=== PATIENT | female | born 1950 | race Caucasian/White ===

== ENCOUNTER 2016-06-10 09:05 | Inpatient (IN) | payer MEDICARE ==
[~2016-06-10] VITALS: Ht 162.6 cm; Wt 63.0 kg
[2016-06-10] VITALS (13 sets, daily range): BP systolic 83–138; BP diastolic 56–90; PULSE 56–146; RESP 16–22; TEMP 98.3–98.6; O2SAT 95–98
[~2016-06-10 09:05] MED LIST: AMLO5TAB96 PO; ASPI325T PO; CALCCHW25 PO; LORA10TA7 PO; OCUV PO; SIMV40 PO; VITATAB25 PO
--- NOTE | 2016-06-10 09:25 | PD ---
HPI Chief Complaint: Cardiac Complaint Time Seen by Provider: 09:15 Travel History International Travel<30 days: No Contact w/Intl Traveler<30days: No Traveled to known affect area: No History of Present Illness HPI Patient is a 58-year-old female who comes in due to rapid heart rate. She says she got up this morning and she felt like her heart was pounding. She says when she stood up she felt very dizzy which caused her to fall and hit her head. She says she did not pass out, she just felt very dizzy at the time. She says she had a frontal headache, but now feels like numbness to the front of her head. She says she has a history of a "funny" heartbeat, but has never had to be on medication for it. She says she's never felt like this before. She denies any chest pain. She denies any shortness of breath. She says she was feeling in her normal state of health before going to bed last night. She denies fever, chills, cough, cold. PFSH Past Medical History Arthritis: Yes (OSTEO) Asthma: Yes Cancer: Yes (RECTAL - REC CHEMO) Cardiovascular Problems: Yes Chemotherapy: Yes Hypertension: Yes Immunizations Current: Yes Tetanus Vaccination: < 5 Years Influenza Vaccination: Yes ?: Not Menopausal: Yes Dilation and Curettage (D&C): Yes Past Surgical History Tonsillectomy: Yes Other Surgery: Yes (SKIN SURGICAL REPAIR OF SCARRING FROM [facility]) Social History Alcohol Use: Yes (SELDOM) Tobacco Use: No Substance Use: No Allergies-Medications (Allergen,Severity, Reaction): Coded Allergies: Codeine (Verified Allergy, Mild, [facility], 01/16/16) Sulfa (Verified Allergy, Mild, Rash, 01/16/16) Reported Meds & Prescriptions Reported Meds & Active Scripts Active Reported Multivitamin Adults (Multiple Vitamins W/ Minerals) 1 Tab 1 Tab PO DAILY Calcium + D & K (Calcium-Vitamins D & K) 500-1,000-40 Mg-Unit-Mcg Chew 1 Tab CHEW Amlodipine (Amlodipine Besylate) 10 Mg Tab 10 Mg PO DAILY Simvastatin 40 Mg Tab 40 Mg PO HS Review of Systems Except as stated in HPI: all other systems reviewed are Neg General / Constitutional: No: Fever, Chills Eyes: No: Blurred Vision HENT: Positive: Headaches, Lightheadedness Cardiovascular: Positive: Palpitations, No: Chest Pain or Discomfort Respiratory: No: Shortness of Breath Gastrointestinal: No: Nausea, Vomiting Musculoskeletal: No: Edema, Pain Skin: No Rash, No Change in Pigmentation Neurologic: Positive: Dizziness Physical Exam Narrative GENERAL: Awake and alert in no acute distress. SKIN: Warm and dry. Ecchymosis under the right eye. HEAD: Atraumatic. Normocephalic. EYES: Pupils equal and round. No scleral icterus. Extraocular movements intact. Tender to palpation around the right eye. ENT: Mucous membranes pink and moist. NECK: Trachea midline. No JVD. CARDIOVASCULAR: Regular rate and rhythm. No murmur appreciated. RESPIRATORY: No accessory muscle use. Clear to auscultation. Breath sounds equal bilaterally. GASTROINTESTINAL: Abdomen soft, non-tender, nondistended. MUSCULOSKELETAL: No obvious deformities. No clubbing. No cyanosis. No edema. NEUROLOGICAL: Awake and alert. No obvious cranial nerve deficits. Motor grossly within normal limits. Normal speech. Sensation grossly intact. PSYCHIATRIC: Appropriate mood and affect; insight and judgment normal. Data Data Last Documented VS Vital Signs Date Time Temp Pulse Resp B/P Pulse Ox O2 Delivery O2 Flow Rate FiO2 06/10/16 11:30 65 18 115/59 97 Nasal Cannula 2 06/10/16 09:13 98.6 Orders Ckmb (Isoenzyme) Profile (06/10/16 09:16) Complete Blood Count With Diff (06/10/16 09:16) Comprehensive Metabolic Panel (06/10/16 09:16) Magnesium (Mg) (06/10/16 09:16) Prothrombin Time / Inr (Pt) (06/10/16 09:16) Act Partial Throm Time (Ptt) (06/10/16 09:16) Troponin I (06/10/16 09:16) Chest, Single Ap (06/10/16 09:16) Ecg Monitoring (06/10/16 09:16) Bilateral Bp Monitoring (06/10/16 09:16) Iv Access Insert/Monitor (06/10/16 09:16) Oximetry (06/10/16 09:16) Oxygen Administration (06/10/16 09:16) Aspirin Chew (Aspirin Chew) (06/10/16 09:30) Sodium Chloride 0.9% Flush (Ns Flush) (06/10/16 09:30) Thyroid Stimulating Hormone (06/10/16 09:16) Diltiazem Inj (Cardizem Inj) (06/10/16 09:30) Diltiazem Inj (Cardizem Inj) (06/10/16 09:30) Sodium Chlorid 0.9% 500 Ml Inj (Ns 500 M (06/10/16 09:30) Ct Brain W/O Iv Contrast(Rout) (06/10/16 ) Ct Facial Bones W/O Iv Cont (06/10/16 ) Ct Cerv Spine W/O Contrast (06/10/16 ) Electrocardiogram (06/10/16 09:15) Ketorolac Inj (Toradol Inj) (06/10/16 11:15) Pelvis, Ap Only (Routine) (06/10/16 ) Spine, Lumbar Comp W/Obliq (06/10/16 ) Admit Order (Ed Use Only) (06/10/16 ) Labs Laboratory Tests Test 06/10/16 09:36 White Blood Count 7.0 TH/MM3 Red Blood Count 4.99 MIL/MM3 Hemoglobin 14.6 GM/DL Hematocrit 43.2 % Mean Corpuscular Volume 86.5 FL Mean Corpuscular Hemoglobin 29.2 PG Mean Corpuscular Hemoglobin 33.8 % Concent Red Cell Distribution Width 15.0 % Platelet Count 209 TH/MM3 Mean Platelet Volume 8.7 FL Neutrophils (%) (Auto) 70.2 % Lymphocytes (%) (Auto) 18.2 % Monocytes (%) (Auto) 6.9 % Eosinophils (%) (Auto) 3.5 % Basophils (%) (Auto) 1.2 % Neutrophils # (Auto) 4.9 TH/MM3 Lymphocytes # (Auto) 1.3 TH/MM3 Monocytes # (Auto) 0.5 TH/MM3 Eosinophils # (Auto) 0.2 TH/MM3 Basophils # (Auto) 0.1 TH/MM3 CBC Comment DIFF FINAL Differential Comment Prothrombin Time 10.5 SEC Prothromb Time International 1.0 RATIO Ratio Activated Partial 25.7 SEC Thromboplast Time Sodium Level 143 MEQ/L Potassium Level 4.0 MEQ/L Chloride Level 108 MEQ/L Carbon Dioxide Level 31.7 MEQ/L Anion Gap 3 MEQ/L Blood Urea Nitrogen 19 MG/DL Creatinine 0.80 MG/DL Estimat Glomerular Filtration 71 ML/MIN Rate Random Glucose 152 MG/DL Calcium Level 8.3 MG/DL Magnesium Level 2.3 MG/DL Total Bilirubin 0.3 MG/DL Aspartate Amino Transf 21 U/L (AST/SGOT) Alanine Aminotransferase 30 U/L (ALT/SGPT) Alkaline Phosphatase 59 U/L Total Creatine Kinase 48 U/L Troponin I LESS THAN 0.02 NG/ML Total Protein 6.8 GM/DL Albumin 3.7 GM/DL Thyroid Stimulating Hormone 4.440 uIU/ML 3rd Gen [facility] Medical Decision Making Medical Screen Exam Complete: Yes Emergency Medical Condition: Yes Medical Record Reviewed: Yes Interpretation(s) ECG shows A. fib with RVR at 138. Differential Diagnosis Arrhythmia versus electrolyte abnormality versus dehydration versus infection versus ACS Narrative Course Patient is a 58-year-old female comes in due to rapid heart rate. This started this morning this causes her to feel so dizzy that she actually fell down and hit her head. Exam shows a rapid irregular heart rate. IV established, patient connected to the hospital monitor. ECG shows A. fib with RVR. Patient originally given 20 mg of Cardizem by EMS with some response, her heart rate improved from the 190s to the 130s to 160s. Patient given second bolus of Cardizem in the emergency department. Cardizem drip ordered, however patient responded well to the bolus of Cardizem and maintained her heart rate under [address] head, C-spine, facial bones ordered, shows no acute findings. Chest x-ray shows no acute findings. Patient placed in observation for further management. Diagnosis Primary Impression: Atrial fibrillation with RVR Additional Impression: Near syncope Admitting Information Admitting Physician Requests: Observation Condition: Stable Katheryn Paul MD Jun 10, 2016 09:24
[2016-06-10] MEDS ORDERED: SODIUM CHLORID 0.9% 500 ML INJ 500 ML IV ONE (09:30)
[2016-06-10] MEDS ORDERED: ASPIRIN 81 MG CHEW TAB PO ONE (09:30)
[2016-06-10] MEDS ORDERED: DILTIAZEM HCL 25 MG/5 ML VIAL IV ONE (09:30)
[2016-06-10] MEDS ORDERED: DILTIAZEM INJ 125 MG in SODIUM CHLORIDE 0.9% INJ 100 ML IV SCH (09:30)
[2016-06-10] MEDS ORDERED: SODIUM CHLORIDE 0.9% FLUSH 5 ML FLUSH IVF PRN (09:30)
--- NOTE | 2016-06-10 09:41 | RADRPT ---
EXAM DATE/TIME: 06/10/2016 09:29 [facility] COMPARISON: No previous studies available for comparison. INDICATIONS : Fell today, nausea, weakness and rapid heart beat, no chest pain, no shortness of breath MEDICAL HISTORY : None. SURGICAL HISTORY : None. ENCOUNTER: Initial ACUITY: 1 day PAIN SCORE: 0/10 LOCATION: Bilateral chest FINDINGS: Single AP view of the chest. The lungs are clear. Cardiomediastinal silhouette within normal limits. No evidence of pleural effusion or pneumothorax. CONCLUSION: No acute cardiopulmonary disease identified. Vineet Levine MD on June 10, 2016 at 9:39 Board Certified Radiologist. This report was verified electronically.
[2016-06-10 09:49] LABS: AUTOMATED NEUTROPHIL # 4.9 TH/MM3 (1.8-7.7); BASOPHIL # 0.1 TH/MM3 (0-0.2); BASOPHIL % 1.2 % (0.0-2.0); EOSINOPHIL # 0.2 TH/MM3 (0-0.4); EOSINOPHIL % 3.5 % (0.0-4.0); HEMATOCRIT 43.2 % (35.0-46.0); HEMO FLAGS DIFF FINAL; LYMPH % 18.2 % (9.0-44.0); LYMPHOCYTE # 1.3 TH/MM3 (1.0-4.8); MEAN CELL VOLUME 86.5 FL (80.0-100.0); MEAN CORPUSCULAR HEMOGLOBIN 29.2 PG (27.0-34.0); MEAN CORPUSCULAR HGB CONC 33.8 % (32.0-36.0); MONO % 6.9 % (0.0-8.0); NEUT % 70.2 % (16.0-70.0); PLATELET COUNT 209 TH/MM3 (150-450); RED BLOOD COUNT 4.99 MIL/MM3 (4.00-5.30)
--- NOTE | 2016-06-10 09:52 | RADRPT ---
EXAM DATE/TIME: 06/10/2016 09:34 [facility] COMPARISON: No previous studies available for comparison. INDICATIONS : Trauma; syncope, fell and hit head against wall. RADIATION DOSE: 56.35 CTDIvol (mGy) MEDICAL HISTORY : Cardiovascular disease. Hypertension. Carcinoma, rectal. SURGICAL HISTORY : Tonsillectomy. ENCOUNTER: Initial ACUITY: 1 day PAIN SCALE: 2/10 LOCATION: cranial TECHNIQUE: Multiple contiguous axial images were obtained of the head. Using automated exposure control and adj ustment of the mA and/or kV according to patient size, radiation dose was kept as low as reasonably a chievable to obtain optimal diagnostic quality images. FINDINGS: CEREBRUM: The ventricles are normal for age. No evidence of midline shift, mass lesion, hemorrhage or acute in farction. No extra-axial fluid collections are seen. POSTERIOR FOSSA: The cerebellum and brainstem are intact. The 4th ventricle is midline. The cerebellopontine angle i s unremarkable. EXTRACRANIAL: The visualized portion of the orbits is intact. SKULL: The calvaria is intact. No evidence of skull fracture. CONCLUSION: No acute intracranial findings. Vineet Levine MD on June 10, 2016 at 9:48 Board Certified Radiologist. This report was verified electronically.
[2016-06-10 09:58] LABS: APTT (PATIENT) 25.7 SEC (24.3-30.1); PROTHROMBIN TIME - PATIENT 10.5 SEC (9.8-11.6)
[2016-06-10] MEDS ORDERED: MULT1TAB84 PO (10:10)
[2016-06-10] MEDS ORDERED: CALCCHW25 CHEW (10:10)
[2016-06-10] MEDS ORDERED: AMLO10TA2 PO (10:10)
[2016-06-10] MEDS ORDERED: SIMV40TA PO (10:10)
[2016-06-10 10:12] LABS: ALT (GPT) 30 U/L (10-53); ANION GAP 3 MEQ/L (5-15); AST (GOT) 21 U/L (15-37); BICARBONATE 31.7 MEQ/L (21.0-32.0); BLOOD UREA NITROGEN 19 MG/DL (7-18); CHLORIDE 108 MEQ/L (98-107); GLOMERULAR FILTRATION RATE 71 ML/MIN (>89); MAGNESIUM 2.3 MG/DL (1.5-2.5); SODIUM (NA) 143 MEQ/L (136-145)
[2016-06-10 10:21] LABS: ALKALINE PHOSPHATASE 59 U/L (45-117); TOTAL BILIRUBIN ADULT 0.3 MG/DL (0.2-1.0)
[2016-06-10 10:24] LABS: CREATINE KINASE 48 U/L (26-192)
--- NOTE | 2016-06-10 10:41 | RADRPT ---
EXAM DATE/TIME: 06/10/2016 09:34 [facility] COMPARISON: No previous studies available for comparison. INDICATIONS : Trauma; syncope, fell and hit head against wall. RADIATION DOSE: 21.96 CTDIvol (mGy) MEDICAL HISTORY : Cardiovascular disease. Carcinoma, rectal. Hypertension. SURGICAL HISTORY : Tonsillectomy. ENCOUNTER: Initial ACUITY: 1 day PAIN SCORE: 3/10 LOCATION: facial TECHNIQUE: Volumetric scanning of the facial bones was performed. Using automated exposure control and adjustme nt of the mA and/or kV according to patient size, radiation dose was kept as low as reasonably achiev able to obtain optimal diagnostic quality images. FINDINGS: ORBITS: The orbital and infraorbital osseous structures are intact. The retroconal structures have a normal configuration. No radiopaque foreign bodies are seen. NASAL BONE: The nasal bone and maxillary spine are intact ZYGOMATIC ARCHES: Symmetric without evidence of fracture. SINUSES: Minimal mucosal thickening of the posterior wall of the right maxillary sinus. NASAL CAVITY: The nasal septum is intact and midline. The lacrimal ducts are intact. SOFT TISSUES: No radiopaque foreign bodies seen. No soft-tissue swelling is seen. INTRACRANIAL: No intracranial air seen. CRIBIFORM PLATE: Grossly intact. CONCLUSION: No evidence of fracture. Vineet Levine MD on June 10, 2016 at 10:36 Board Certified Radiologist. This report was verified electronically.
--- NOTE | 2016-06-10 10:47 | RADRPT ---
EXAM DATE/TIME: 06/10/2016 09:34 [facility] COMPARISON: No previous studies available for comparison. INDICATIONS : Trauma; syncope, fell and hit head against wall. RADIATION DOSE: 18.26 CTDIvol (mGy) MEDICAL HISTORY : Cardiovascular disease. Carcinoma, rectal. Hypertension. SURGICAL HISTORY : Tonsillectomy. ENCOUNTER: Initial ACUITY: 1 day PAIN SCALE: 2/10 LOCATION: neck TECHNIQUE: Volumetric scanning of the cervical spine was performed. Multiplanar reconstructions in the sagittal, coronal and oblique axial planes were performed. Using automated exposure control and adjustment o f the mA and/or kV according to patient size, radiation dose was kept as low as reasonably achievable to obtain optimal diagnostic quality images. FINDINGS: VERTEBRAE: Cervical kyphosis centered at C4-5. ALIGNMENT: 2-3 mm anterolisthesis C4 on C5. Alignment otherwise within normal limits. No evidence of fracture. C2-C3: The moderate severity right-sided facet arthrosis. No evidence of focal disc protrusion. Central kristen l normal diameter. Neural foraminal diameters within normal limits. C3-C4: Moderate severity left-sided facet arthrosis. No evidence of focal disc protrusion. Central canal nor mal diameter. Neural foraminal diameters within normal limits. C4-C5: Moderate severity bilateral facet arthrosis. No evidence of focal disc protrusion. Central canal norm al diameter. Neural foraminal diameters within normal limits. C5-C6: Broad-based disc osteophyte complex and mild bilateral facet arthrosis. Mild right neural foraminal n arrowing. Central canal diameter within normal limits. C6-C7: Broad-based disc osteophyte complex and moderate severity right-sided facet arthrosis. Moderate right neural foraminal narrowing. Central canal diameter within normal limits. C7-T1: No evidence of focal disc protrusion. Central canal normal diameter. Neural foraminal diameters withi n normal limits. CONCLUSION: 1. No evidence of fracture. 2. Multilevel degenerative findings. Vineet Levine MD on June 10, 2016 at 10:39 Board Certified Radiologist. This report was verified electronically.
[2016-06-10] MEDS ORDERED: KETOROLAC TROMETHAMINE 30 MG/ML (IVP) VIAL IV PUSH ONE (11:15)
--- NOTE | 2016-06-10 11:39 | HHI.HP ---
[facility] Service Family Medicine Primary Care Physician Bryson Cooper MD Admission Diagnosis syncope, afib Diagnoses: Chief Complaint: palpitations International Travel<30 Days: No Contact w/Intl Traveler<30days: No Known Affected Area: No History of Present Illness 66 y/o female presents this morning with palpitations. States she woke up this morning with a "hard" heartbeat. Also felt some tingling in her face and had a headache. She felt lightheaded/dizzy. She went to the bathroom and after standing up, she felt lightheaded. She fell and hit side of face on the wall and developed a nosebleed. Didn't lose consciousness, but felt nauseated. No vomiting. Denies chest pain, SOB. No history of heart disease. Does not drink alcohol, glass of wine rarely. Has a history of hypertension States she states her heart flutters every once and awhile. Saw boiler room operator, Dr. Samson and did full cardiac workup, which was negative. Also put her on holter, which was negative Father had "weak heart". Mother has history of heart disease. No fever/chills, lightheadedness/dizziness, chest pain, SOB, leg pain, weakness/numbness. (Espinoza Meier MD R1) Review of Systems Constitutional: DENIES: Fatigue, Fever, Weight loss, Chills, Dizziness Eyes: DENIES: Blurred vision, Vision loss Ears, nose, mouth, throat: DENIES: Tinnitus, Hearing loss, Nasal discharge, Running Nose Respiratory: DENIES: Cough, Wheezing, Shortness of breath Cardiovascular: COMPLAINS OF: Palpitations, DENIES: Chest pain, Lower Extremity Edema Gastrointestinal: DENIES: Abdominal pain, Bloody stools, Constipation, Diarrhea , Nausea, Vomiting Musculoskeletal: DENIES: Joint pain, Muscle aches Integumentary: DENIES: Abnormal pigmentation, Rash Hematologic/lymphatic: DENIES: Bruising, Lymphadenopathy Immunologic/allergic: DENIES: Eczema, Urticaria Neurologic: DENIES: Abnormal gait, Headache, Paresthesias Psychiatric: DENIES: Anxiety, Confusion (Espinoza Meier MD R1) Past Family Social History Past Medical History HLD HTN Rectal cancer Past Surgical History Tonsillectomy Cataract surgery Reported Medications Reported Meds & Active Scripts Active Reported Multivitamin Adults (Multiple Vitamins W/ Minerals) 1 Tab 1 Tab PO DAILY Calcium + D & K (Calcium-Vitamins D & K) 500-1,000-40 Mg-Unit-Mcg Chew 1 Tab CHEW Amlodipine (Amlodipine Besylate) 10 Mg Tab 10 Mg PO DAILY Simvastatin 40 Mg Tab 40 Mg PO HS ASA 81mg daily (Espinoza Meier MD R1) Allergies: Coded Allergies: Codeine (Verified Allergy, Mild, [facility], 01/16/16) Sulfa (Verified Allergy, Mild, Rash, 01/16/16) Active Ordered Medications Active Medications Aspirin (Aspirin Chew) 324 mg ONCE ONCE PO Last administered on 06/10/16 09:26 ; Admin Dose 324 MG; Start 06/10/16 at 09:30; Stop 06/10/16 at 09:31; Status DC Diltiazem HCl 25 mg 25 mg ONCE ONCE IV Last administered on 06/10/16 09:27; Admin Dose 25 MG; Start 06/10/16 at 09:30; Stop 06/10/16 at 09:31; Status DC Diltiazem HCl/ Sodium Chloride (Cardizem Inj/NS Inj) 125 ml @ 0 mls/hr TITRATE IV; Start 06/10/16 at 09:30 IV Flush 2 ml 2 ml UNSCH PRN IVF; Start 06/10/16 at 09:30 Ketorolac Tromethamine (Toradol Inj) 30 mg ONCE ONCE IV PUSH Last administered on 06/10/16 11:29; Admin Dose 30 MG; Start 06/10/16 at 11:15; Stop 06/10/16 at 11: 16; Status DC Sodium Chloride (NS 500 ml Inj) 500 ml @ 500 mls/hr BOLUS ONCE IV Last administered on 06/10/16 09:31; Admin Dose 500 MLS/HR; Start 06/10/16 at 09:30; Stop 06/10/16 at 10:29; Status DC Family History Both parents with heart disease No FH of Afib Social History Works as an educator automotive parts manager Denies alcohol use, wine rarely No tobacco use No illicit drug use (Espinoza Meier MD R1) Physical Exam Vital Signs Vital Signs Date Time Temp Pulse Resp B/P Pulse Ox O2 Delivery O2 Flow Rate FiO2 06/10/16 11:30 65 18 115/59 97 Nasal Cannula 2 06/10/16 09:53 82 18 102/61 97 Nasal Cannula 2 06/10/16 09:32 117 18 104/68 97 Nasal Cannula 2 83/56 06/10/16 09:24 98 Room Air 06/10/16 09:24 98 Room Air 06/10/16 09:19 146 22 96 Room Air 06/10/16 09:19 146 22 127/90 98 Room Air 06/10/16 09:13 98.6 146 22 127/90 96 Physical Exam GENERAL: Well developed, well-nourished elderly female. Negative Lavines sign. Not diaphoretic. Not anxious appearing. EYES: PERRLA. EOMI. Lids and conjunctivae reveal no gross abnormality. No scleral icterus. Ecchymoses around right eye. ENT: Hearing adequate. Head NCAT. MMM. OP/OC clear. No cervical or supraclavicular LAD. NECK: No JVD. No carotid bruits. Neck supple, no masses. Trachea midline. No thyromegaly. RESPIRATORY: No evidence of pulmonary edema. Lungs essentially CTAB, no wheezing , crackles, or increased WOB. CARDIOVASCULAR: Regular rate and rhythm. Heart rate is 65. Radial and DP pulses 2+ and symmetric bilaterally. Brisk capillary refill. ABDOMEN: S/NT/ND. Bowel sounds x 4. No masses or pulsations present. EXTREMITIES: No remarkable dependent edema or varicosities. No clubbing, cyanosis, or erythema. MUSCULOSKELETAL: MAEW without significant joint pain or deformity. Strength 5/5 in upper and lower extremities. No calf tenderness. Bony tenderness lower back. SKIN: Essentially clear with no significant rash or lesions. Adequate skin turgor. NEUROLOGICAL: NFND. Cranial nerves 2-12 grossly intact. PSYCHIATRIC: Mental status normal for age. Laboratory Laboratory Tests Test 06/10/16 09:36 White Blood Count 7.0 Red Blood Count 4.99 Hemoglobin 14.6 Hematocrit 43.2 Mean Corpuscular Volume 86.5 Mean Corpuscular Hemoglobin 29.2 Mean Corpuscular Hemoglobin 33.8 Concent Red Cell Distribution Width 15.0 Platelet Count 209 Mean Platelet Volume 8.7 Neutrophils (%) (Auto) 70.2 Lymphocytes (%) (Auto) 18.2 Monocytes (%) (Auto) 6.9 Eosinophils (%) (Auto) 3.5 Basophils (%) (Auto) 1.2 Neutrophils # (Auto) 4.9 Lymphocytes # (Auto) 1.3 Monocytes # (Auto) 0.5 Eosinophils # (Auto) 0.2 Basophils # (Auto) 0.1 CBC Comment DIFF FINAL Differential Comment Prothrombin Time 10.5 Prothromb Time International 1.0 Ratio Activated Partial 25.7 Thromboplast Time Sodium Level 143 Potassium Level 4.0 Chloride Level 108 Carbon Dioxide Level 31.7 Anion Gap 3 Blood Urea Nitrogen 19 Creatinine 0.80 Estimat Glomerular Filtration 71 Rate Random Glucose 152 Calcium Level 8.3 Magnesium Level 2.3 Total Bilirubin 0.3 Aspartate Amino Transf 21 (AST/SGOT) Alanine Aminotransferase 30 (ALT/SGPT) Alkaline Phosphatase 59 Total Creatine Kinase 48 Troponin I LESS THAN 0.02 Total Protein 6.8 Albumin 3.7 Thyroid Stimulating Hormone 4.440 3rd Gen (Espinoza Meier MD R1) Result Diagram: 06/10/1636 06/10/16 0936 Imaging Last Impressions Chest X-Ray 06/10/16 0916 Signed Impressions: Service Date/Time: Friday, June 10, 2016 09:29 - CONCLUSION: No acute cardiopulmonary disease identified. Vineet Levine MD Pelvis X-Ray 06/10/16 0000 Signed Impressions: Service Date/Time: Friday, June 10, 2016 12:08 - CONCLUSION: No evidence of fracture. Vineet Levine MD Maxillofacial CT 06/10/16 0000 Signed Impressions: Service Date/Time: Friday, June 10, 2016 09:34 - CONCLUSION: No evidence of fracture. Vineet Levine MD Lumbar Spine X-Ray 06/10/16 0000 Signed Impressions: Service Date/Time: Friday, June 10, 2016 12:09 - CONCLUSION: Fracture of the L1 vertebral body involving the anterior inferior portion of the vertebral body. Possible involvement of the pedicles seen on the lateral view. Vineet Levine MD Head CT 06/10/16 0000 Signed Impressions: Service Date/Time: Friday, June 10, 2016 09:34 - CONCLUSION: No acute intracranial findings. Vineet Levine MD Cervical Spine CT 06/10/16 0000 Signed Impressions: Service Date/Time: Friday, June 10, 2016 09:34 - CONCLUSION: 1. No evidence of fracture. 2. Multilevel degenerative findings. Vineet Levine MD (Espinoza Meier MD R1) Assessment and Plan Assessment and Plan 66 y/o female with history of HTN, HLD found to be in atrial fibrillation. Will admit for cardiac workup and medical management. Code Status Full Discussed Condition With Dr. Shore (Espinoza Meier MD R1) Attending Attestation THIS CASE WAS DISCUSSED WITH THE RESIDENT PHYSICIANS. I HAVE REVIEWED THE RECORD AND AGREE WITH THE ABOVE NOTE AND PLAN OF CARE WAS DISCUSSED. I HAVE AUTHORIZED THE ORDER FOR ADMISSION TO AN IN-PATIENT STATUS. (Vince Haile MD) Problem List: (1) Atrial fibrillation Status: Acute Plan: Admitted with rate of 146. History of palpitations, never formally diagnosed No history of heart disease Received 25mg Diltiazem IV in ED, spontaneously converted EKG shows atrial fibrillation Initial troponin negative. TSH 4.440. INR 1.0 CHADS2-Vasc score of 3 Plan -Admit to inpatient -Respiratory pulse ox -Telemetry -Trend troponins/EKGs -2-D Echo -Consult cardiology, pt known to Dr. Samson -Start metoprolol 25mg BID -BMP in AM -Start on Warfarin 5mg daily -Trend INR until therapeutic (2-3) (2) Fall Status: Acute Plan: Was lightheaded/dizzy fell and hit head on side of wall. No headache, lightheadedness on admission. No neurological deficits. Head CT negative Skeletal series xray negative, except lumbar spine: fracture of L1 vertebral body involving anterior inferior portion, possible involvement of pedicles Takes Calcium & Vitamin D supplementation at home Plan -Tylenol for fever or pain 1-5 -Toradol for pain 6-10 -Recommend DEXA as outpatient (3) HLD (hyperlipidemia) Status: Acute Plan: Continue home statin-simvastatin 40mg daily (4) HTN (hypertension) Status: Acute Plan: BP 127/90 on admission -Continue home meds: amlodipine 10mg daily (5) FEN Status: Acute Plan: Fluids: none, tolerating PO Electrolytes: wnl, continue to monitor Nutrition: heart healthy diet DVT ppx: lovenox 40mg SQ q12H (Espinoza Meier MD R1) Physician Certification 2 Midnight Certification Type: Admission for Inpatient Services Order for Inpatient Services The services are ordered in accordance with Medicare regulations or non- Medicare payer requirements, as applicable. In the case of services not specified as inpatient-only, they are appropriately provided as inpatient services in accordance with the 2-midnight benchmark. Estimated LOS (days): 2 days is the estimated time the patient will need to remain in the hospital, assuming treatment plan goals are met and no additional complications. Post-Hospital Plan: Home (Espinoza Meier MD R1) Problem Qualifiers (1) Atrial fibrillation: Qualified Code: I48.0 - Paroxysmal atrial fibrillation (2) Fall: Qualified Code: W19.XXXA - Fall, initial encounter (3) HLD (hyperlipidemia): Qualified Code: E78.00 - Pure hypercholesterolemia (4) HTN (hypertension): Qualified Code: I10 - Essential hypertension Espinoza Meier MD R1 Jun 10, 2016 11:39 Vince Haile MD Jun 11, 2016 12:40
[2016-06-10] MEDS ORDERED: SODIUM CHLORIDE 0.9% FLUSH 5 ML FLUSH FLUSH PRN (11:45)
--- NOTE | 2016-06-10 12:46 | RADRPT ---
EXAM DATE/TIME: 06/10/2016 12:08 [facility] COMPARISON: No previous studies available for comparison. INDICATIONS : Fall. MEDICAL HISTORY : None. SURGICAL HISTORY : None. ENCOUNTER: Initial ACUITY: 1 day PAIN SCORE: 10/10 LOCATION: Bilateral pelvis FINDINGS: Single AP view of the pelvis. Bone alignment within normal limits. No evidence of fracture. CONCLUSION: No evidence of fracture. Vineet Levine MD on June 10, 2016 at 12:44 Board Certified Radiologist. This report was verified electronically.
--- NOTE | 2016-06-10 12:51 | RADRPT ---
EXAM DATE/TIME: 06/10/2016 12:09 [facility] COMPARISON: No previous studies available for comparison. INDICATIONS : Fall - low back pain. MEDICAL HISTORY : None. SURGICAL HISTORY : None. ENCOUNTER: Initial ACUITY: 1 day PAIN SCORE: 10/10 LOCATION: Bilateral lower back FINDINGS: 5 views of the lumbar spine. There is an obliquely oriented fracture involving the anterior inferior corner of the L1 vertebral body with a 2 cm x 1 cm triangular anterior inferior bone fragment. 3 mm s tep off at the anterior cortex. Possible nondisplaced horizontal fracture of the pedicles on the late ral view only. Alignment within normal limits. Small endplate osteophytes anteriorly at L2-3. Mild hy pertrophic change of the L4-5 and L5-S1 facet joints. CONCLUSION: Fracture of the L1 vertebral body involving the anterior inferior portion of the vertebral body. Poss ible involvement of the pedicles seen on the lateral view. Vineet Levine MD on June 10, 2016 at 12:45 Board Certified Radiologist. This report was verified electronically.
[2016-06-10] MEDS: ENOXAPARIN SODIUM 40 MG/0.4 ML SYRINGE SQ SCH (12:53)
[2016-06-10 12:57] LABS: CREATINE KINASE 51 U/L (26-192)
--- NOTE | 2016-06-10 13:54 | EKG ---
Date Performed: 06/10/2016 Time Performed: 09:15:29 PTAGE: 66 years EKG: ATRIAL FIBRILLATION WITH RAPID VENTRICULAR RESPONSE MODERATE ST DEPRESSION Compared to the previous tracing, the patient has developed atrial fibrillation with rapid v. response. Nonspecific S T segment changes are also new Clinical correlation is advised ABNORMAL ECG PREVIOUS TRACING : 08/31/2006 14.40 DOCTOR: Joelle Vital Interpretating Date/Time 06/10/2016 13:48:01
[2016-06-10] MEDS ORDERED: ONDANSETRON HCL 4 MG/2 ML VIAL IV PRN (14:15)
[2016-06-10] MEDS ORDERED: ACETAMINOPHEN 325 MG TAB PO PRN (14:15)
[2016-06-10] MEDS ORDERED: NALOXONE HCL 0.4 MG/ML AMP IV PRN (14:15)
[2016-06-10] MEDS ORDERED: DOCUSATE SODIUM 50 MG/SENNA 8.6 MG TAB PO PRN (14:15)
[2016-06-10] MEDS ORDERED: WARFARIN SOD 5 MG TAB PO SCH (16:00)
[2016-06-10] MEDS: KETOROLAC TROMETHAMINE 30 MG/ML (IVP) VIAL IVP PRN (16:47)
--- NOTE | 2016-06-10 18:33 | MB ---
cc: KODY VILLEGAS MD DATE OF CONSULTATION: 06/10/2016 REASON FOR CONSULTATION New-onset atrial fibrillation. HISTORY OF PRESENT ILLNESS Ms. Hopkins is a 66-year-old female who does have a history of hypertension. She reports that she has had intermittent episodes of palpitations for years. This morning however she woke up and felt her heart fluttering. She had some dizziness and lightheadedness that was quite severe. She apparently fell against the wall and hit her face and subsequently developed a nosebleed. She denies any loss of consciousness. She subsequently sought attention in the emergency room. Of note, the patient did see Dr. Samson back in 2008 and she has not seen him since. She reports that workup was negative. PAST MEDICAL HISTORY Significant for - 1. Hypertension. 2. Hyperlipidemia. 3. Rectal cancer. PAST SURGICAL HISTORY 1. Tonsillectomy. 2. Cataract surgery. OUTPATIENT MEDICATIONS 1. Aspirin. 2. Amlodipine 10 mg a day. 3. Simvastatin 40 mg q.h.s. ALLERGIES CODEINE AND SULFA. REVIEW OF SYSTEMS Except for what is mentioned in the HPI, all 12 systems are negative. FAMILY HISTORY Noncontributory. PHYSICAL EXAMINATION VITAL SIGNS: 59, 18, 115/59. GENERAL: She is a well-appearing female who is in no apparent distress. HEENT: There is some ecchymosis over the right periorbital area. NECK: The neck is free from JVD. LUNGS: The lungs are clear to auscultation. CARDIOVASCULAR EXAMINATION: She has a normal S1 and S2. I did not appreciate any murmurs, rubs or gallop. ABDOMEN: The abdomen is soft. EXTREMITIES: The extremities are free from edema. LABORATORY VALUES Hemoglobin of 14.6. Her creatinine is 0.8. She has serial troponins of less than 0.02/less than 0.02. TSH is 4.4. EKG shows atrial fibrillation with rapid ventricular rate. Telemetry currently shows a normal sinus rhythm at 60 beats a minute. IMPRESSIONS New-onset atrial fibrillation - The patient has converted back into sinus rhythm. She is asymptomatic at this point. Adding the Metoprolol is reasonable. At this point, I have also discussed with her Coumadin versus the new oral agents. She is currently undecided. I do agree with further anticoagulation as her CHADS VASc score is 3 with a point for female, hypertension and age over 65. Her cardiac workup can be completed as an outpatient. Hypertension - Her blood pressure is currently good to low. I would reduce her amlodipine to make room for titrating up the chronotropic agents. Disposition - It is reasonable for discharge in the a.m. particularly if we can get her anticoagulation with a new oral agent. Kody Villegas M.D. MARIA LUISA/BJF /5:47 PM /6:08 PM
[2016-06-10 20:45] LABS: CREATINE KINASE 47 U/L (26-192)
[2016-06-10] MEDS ORDERED: PRAVASTATIN SOD 80 MG TAB PO SCH (21:00)
[2016-06-10] MEDS: SODIUM CHLORIDE 0.9% FLUSH 5 ML FLUSH FLUSH SCH (21:34)
[2016-06-10] MEDS: METOPROLOL TARTRATE 25 MG TAB PO SCH (21:34)
[2016-06-11] MEDS: ENOXAPARIN SODIUM 40 MG/0.4 ML SYRINGE SQ SCH (01:43)
[2016-06-11] MEDS: KETOROLAC TROMETHAMINE 30 MG/ML (IVP) VIAL IVP PRN ×2 (01:44→09:23)
[2016-06-11 04:26] LABS: MEAN CELL VOLUME 86.6 FL (80.0-100.0); MEAN CORPUSCULAR HGB CONC 33.5 % (32.0-36.0); PLATELET COUNT 181 TH/MM3 (150-450); RED BLOOD COUNT 4.16 MIL/MM3 (4.00-5.30); RED CELL DISTRIBUTION WIDTH 15.3 % (11.6-17.2); REVIEW FLAG FINAL; WHITE BLOOD COUNT 8.6 TH/MM3 (4.0-11.0)
[2016-06-11 04:36] LABS: BICARBONATE 28.7 MEQ/L (21.0-32.0); POTASSIUM 3.6 MEQ/L (3.5-5.1)
[2016-06-11 05:23] VITALS: BP 122/62
[2016-06-11 06:11] VITALS: BP 139/69; PULSE 57; RESP 20; TEMP 98; O2SAT 95
[2016-06-11 07:35] VITALS: BP 124/60; PULSE 57; RESP 18; TEMP 96.3; O2SAT 95
[2016-06-11] MEDS ORDERED: amLODIPine BESYLATE 5 MG TAB PO SCH (09:00)
[2016-06-11] MEDS: METOPROLOL TARTRATE 25 MG TAB PO SCH (09:17)
[2016-06-11] MEDS: SODIUM CHLORIDE 0.9% FLUSH 5 ML FLUSH FLUSH SCH (09:17)
--- NOTE | 2016-06-11 09:34 | HHI.FPPN ---
Subjective Remarks FM Attending Note: Patient seen and examined. S: Chart and all resident physician notes reviewed. In summary this is a 66 year old female who was admitted with an admission diagnosis of Syncope, Afib. On the morning of admission this patient had a sensation of a "hard" heartbeat with her heartbeat being irregular. When she sat up in the bathroom she became dizzy having a near syncopal episode in which she fell against the wall twisting her back. On arrival in the emergency room she was noted to be in atrial fibrillation. She had no significant chest pain or shortness of breath. She describes some mild facial paresthesias and headaches but no other neurologic deficit. Since that time she is converted back to a normal sinus rhythm and is receiving metoprolol. She has been seen by salvager with recommendations for anticoagulation. Apparently in the fall the patient also sustained a compression fracture of her first lumbar vertebrae. At this time she notes some mild pain in her mid back area but notes that it is tolerable and not significantly more painful with movement. No radiation of the pain is noted. She also sustained a contusion of her face with right periorbital ecchymosis. No loss of consciousness occurred. Objective Vitals Vital Signs Date Time Temp Pulse Resp B/P Pulse Ox O2 Delivery O2 Flow Rate FiO2 06/11/16 08:17 06/11/16 07:35 96.3 57 18 124/60 95 06/11/16 06:11 98.0 57 20 139/69 95 06/11/16 05:23 56 16 122/62 96 06/11/16 03:42 16 06/10/16 23:00 98.3 60 16 138/72 98 Room Air 06/10/16 21:00 57 116/65 96 Room Air 06/10/16 20:08 61 18 131/60 95 Room Air 06/10/16 19:00 56 18 134/64 96 Room Air 06/10/16 16:56 59 18 115/59 98 Room Air 06/10/16 14:54 69 18 107/57 95 Nasal Cannula 06/10/16 12:54 65 18 104/59 97 Nasal Cannula 2 06/10/16 11:30 65 18 115/59 97 Nasal Cannula 2 06/10/16 09:53 82 18 102/61 97 Nasal Cannula 2 06/10/16 09:32 117 18 104/68 97 Nasal Cannula 2 83/56 I/O 06/10/16 06/10/16 06/10/16 06/11/16 06/11/16 06/11/16 07:00 15:00 23:00 07:00 15:00 23:00 Intake Total 240 ml Balance 240 ml Intake Oral 240 ml # Voids 1 Result Diagram: 06/11/16 0328 06/11/16 0328 Other Results Item Value Date Time Prothrombin Time 10.5 SEC 06/10/16 0936 Prothromb Time International Ratio 1.0 RATIO 06/10/16 0936 Activated Partial Thromboplast Time 25.7 SEC 06/10/16 0936 Magnesium Level 2.3 MG/DL 06/10/16 0936 Total Bilirubin 0.3 MG/DL 06/10/16 0936 Aspartate Amino Transf (AST/SGOT) 21 U/L 06/10/16 0936 Alanine Aminotransferase (ALT/SGPT) 30 U/L 06/10/16 0936 Alkaline Phosphatase 59 U/L 06/10/16 0936 Total Creatine Kinase 48 U/L 06/10/16 0936 Total Creatine Kinase 51 U/L 06/10/16 1210 Total Creatine Kinase 47 U/L 06/10/16 1948 Troponin I LESS THAN 0.02 NG/ML L 06/10/16 0936 Troponin I LESS THAN 0.02 NG/ML L 06/10/16 1210 Troponin I LESS THAN 0.02 NG/ML L 06/10/16 1948 Thyroid Stimulating Hormone 3rd Gen 4.440 uIU/ML H 06/10/16 0936 Imaging Last 48 hours Impressions Chest X-Ray 06/10/16 0916 Signed Impressions: Service Date/Time: Friday, June 10, 2016 09:29 - CONCLUSION: No acute cardiopulmonary disease identified. Vineet Levine MD Pelvis X-Ray 06/10/16 0000 Signed Impressions: Service Date/Time: Friday, June 10, 2016 12:08 - CONCLUSION: No evidence of fracture. Vineet Levine MD Maxillofacial CT 06/10/16 0000 Signed Impressions: Service Date/Time: Friday, June 10, 2016 09:34 - CONCLUSION: No evidence of fracture. Vineet Levine MD Lumbar Spine X-Ray 06/10/16 0000 Signed Impressions: Service Date/Time: Friday, June 10, 2016 12:09 - CONCLUSION: Fracture of the L1 vertebral body involving the anterior inferior portion of the vertebral body. Possible involvement of the pedicles seen on the lateral view. Vineet Levine MD Head CT 06/10/16 0000 Signed Impressions: Service Date/Time: Friday, June 10, 2016 09:34 - CONCLUSION: No acute intracranial findings. Vineet Levine MD Cervical Spine CT 06/10/16 0000 Signed Impressions: Service Date/Time: Friday, June 10, 2016 09:34 - CONCLUSION: 1. No evidence of fracture. 2. Multilevel degenerative findings. iVneet Levine MD Objective Remarks O. CONSTITUTIONAL/GEN: normally nourished, in NAD. EYES: conjunctiva normal, PERRLA, EOMI. R. shira-orbital ecchymosis. ENT: Mouth and pharynx normal. NECK: thyroid midline, carotids symmetrical. FROM without pain. LUNGS: clear A-P, respiratory effort is normal. CARDIOVASCULAR: RR without murmur or gallop. No significant edema. GI/ABD: soft without masses, without organomegaly. NEURO: No focal deficits. MUSC: back is normal in appearance. Mild pain in the mid-lower back. Extremities are normal in appearance. PSYCH/MENTAL STATUS: Alert and oriented x 3. A/P Assessment and Plan 66 y/o female with history of HTN, HLD found to be in atrial fibrillation. Will admit for cardiac workup and medical management. Problem List: (1) Atrial fibrillation Status: Acute Plan: Admitted with rate of 146. History of palpitations, never formally diagnosed No history of heart disease Received 25mg Diltiazem IV in ED, spontaneously converted EKG shows atrial fibrillation Initial troponin negative. TSH 4.440. INR 1.0 CHADS2-Vasc score of 3 Plan -Admit to inpatient -Respiratory pulse ox -Telemetry -Trend troponins/EKGs -2-D Echo -Consult cardiology, pt known to Dr. Samson -Start metoprolol 25mg BID -BMP in AM -Start on Warfarin 5mg daily -Trend INR until therapeutic (2-3) 06/11/16 This patient now appears to have converted back to a normal sinus rhythm. She was given metoprolol and will be maintained on the same and recommendation of cardiology. We also discussed the increased risk of stroke with atrial fibrillation. Will ask case management to query her insurance company regarding coverage of there is anticoagulants. She is currently on Lovenox and has been started on warfarin in the event that the non-vitamin K based anticoagulants are not covered by her insurance company. She will follow-up with her salvager as an outpatient when discharged. (2) Compression fracture of L1 lumbar vertebra Status: Acute Plan: We did discuss the findings of the compression fracture noted on her x- ray survey. At the current time she is only having mild pain. We did review her history of allergy to codeine. This dates back 40 years when she notes she was given codeine and felt funny. No significant respiratory symptoms were noted and no allergic type skin rashes were noted. We'll start the patient on be a calcium nasal spray once daily. We'll medicate for pain utilizing Tylenol initially and if the pain is not controlled then a trial of tramadol. She will need to follow-up for ongoing care with her primary care physician. She currently is on vitamin D and calcium supplementation. (3) Fall Status: Acute Plan: Was lightheaded/dizzy fell and hit head on side of wall. No headache, lightheadedness on admission. No neurological deficits. Head CT negative Skeletal series xray negative, except lumbar spine: fracture of L1 vertebral body involving anterior inferior portion, possible involvement of pedicles Takes Calcium & Vitamin D supplementation at home Plan -Tylenol for fever or pain 1-5 -Toradol for pain 6-10 -Recommend DEXA as outpatient (4) HLD (hyperlipidemia) Status: Acute Plan: Continue home statin-simvastatin 40mg daily (5) HTN (hypertension) Status: Acute Plan: BP 127/90 on admission -Continue home meds: amlodipine 10mg daily (6) FEN Status: Acute Plan: Fluids: none, tolerating PO Electrolytes: wnl, continue to monitor Nutrition: heart healthy diet DVT ppx: lovenox 40mg SQ q12H Problem Qualifiers (1) Atrial fibrillation: Qualified Code: I48.0 - Paroxysmal atrial fibrillation (2) Fall: Qualified Code: W19.XXXA - Fall, initial encounter (3) HLD (hyperlipidemia): Qualified Code: E78.00 - Pure hypercholesterolemia (4) HTN (hypertension): Qualified Code: I10 - Essential hypertension Vince Haile MD Jun 11, 2016 09:34
[2016-06-11] MEDS ORDERED: ACETAMINOPHEN 325 MG TAB PO PRN (09:45)
[2016-06-11] MEDS ORDERED: traMADol HCL 50 MG TAB PO PRN (10:00)
[2016-06-11 10:19] VITALS: PULSE 58
--- NOTE | 2016-06-11 10:26 | PD.CARD.PN ---
Subjective Subjective Remarks Pt without complaints Objective Medications Current Medications Medications (Trade) Dose Ordered Sig/Ivory Route Start Time Stop Time Status Last Admin (NS Flush) 2 ml UNSCH PRN FLUSH 06/10/16 11:45 (NS Flush) 2 ml BID FLUSH 06/10/16 21:00 06/11/16 09:17 (Lopressor) 25 mg BID PO 06/10/16 21:00 06/11/16 09:17 (Lovenox Inj) 40 mg Q12H SQ 06/10/16 13:00 06/11/16 01:43 (Coumadin) 5 mg DAILY@1600 PO 06/10/16 16:00 06/10/16 16:46 (Pravachol) 80 mg HS PO 06/10/16 21:00 06/10/16 21:34 (Zofran Inj) 4 mg Q6H PRN IV 06/10/16 14:15 (Elinor-Colace) 1 tab BID PRN PO 06/10/16 14:15 (Narcan Inj) 0.4 mg UNSCH PRN IV 06/10/16 14:15 (Norvasc) 5 mg DAILY PO 06/11/16 09:00 06/11/16 09:17 (Tylenol) 650 mg Q4H PRN PO 06/11/16 09:45 UNV (Ultram) 50 mg Q12H PRN PO 06/11/16 10:00 UNV Vital Signs / I&O Vital Signs Date Time Temp Pulse Resp B/P Pulse Ox O2 Delivery O2 Flow Rate FiO2 06/11/16 10:19 58 06/11/16 08:17 06/11/16 07:35 96.3 57 18 124/60 95 06/11/16 06:11 98.0 57 20 139/69 95 06/11/16 05:23 56 16 122/62 96 06/11/16 03:42 16 06/10/16 23:00 98.3 60 16 138/72 98 Room Air 06/10/16 21:00 57 116/65 96 Room Air 06/10/16 20:08 61 18 131/60 95 Room Air 06/10/16 19:00 56 18 134/64 96 Room Air 06/10/16 16:56 59 18 115/59 98 Room Air 06/10/16 14:54 69 18 107/57 95 Nasal Cannula 06/10/16 12:54 65 18 104/59 97 Nasal Cannula 2 06/10/16 11:30 65 18 115/59 97 Nasal Cannula 2 I/O 06/10/16 06/10/16 06/10/16 06/11/16 06/11/16 06/11/16 07:00 15:00 23:00 07:00 15:00 23:00 Intake Total 240 ml Balance 240 ml Intake Oral 240 ml # Voids 1 Physical Exam GENERAL: Well developed, well nourished. No acute distress. HEENT: Jugular venous pressure is normal. CHEST: Lungs clear to auscultation bilaterally. Unlabored respiratory effort. CARDIAC: Regular rate and rhythm without S3, S4, or murmur. ABDOMEN: Soft, nontender, no hepatosplenomegaly. Bowel sounds present. EXTREMITIES: No clubbing, cyanosis, or edema. Laboratory Laboratory Tests Test 06/10/16 06/10/16 06/11/16 12:10 19:48 03:28 Total Creatine Kinase 51 U/L 47 U/L Troponin I LESS THAN 0.02 LESS THAN 0.02 NG/ML NG/ML White Blood Count 8.6 TH/MM3 Red Blood Count 4.16 MIL/MM3 Hemoglobin 12.1 GM/DL Hematocrit 36.0 % Mean Corpuscular Volume 86.6 FL Mean Corpuscular Hemoglobin 29.0 PG Mean Corpuscular Hemoglobin 33.5 % Concent Red Cell Distribution Width 15.3 % Platelet Count 181 TH/MM3 Mean Platelet Volume 8.7 FL Prothrombin Time 11.0 SEC Prothromb Time International 1.0 RATIO Ratio Sodium Level 142 MEQ/L Potassium Level 3.6 MEQ/L Chloride Level 108 MEQ/L Carbon Dioxide Level 28.7 MEQ/L Anion Gap 5 MEQ/L Blood Urea Nitrogen 15 MG/DL Creatinine 0.72 MG/DL Estimat Glomerular Filtration 81 ML/MIN Rate Random Glucose 104 MG/DL Calcium Level 8.2 MG/DL Imaging Last 72 hours Impressions Chest X-Ray 06/10/16 0916 Signed Impressions: Service Date/Time: Friday, June 10, 2016 09:29 - CONCLUSION: No acute cardiopulmonary disease identified. Vineet Levine MD Pelvis X-Ray 06/10/16 0000 Signed Impressions: Service Date/Time: Friday, June 10, 2016 12:08 - CONCLUSION: No evidence of fracture. Vineet Levine MD Maxillofacial CT 06/10/16 Signed Impressions: Service Date/Time: Friday, June 10, 2016 09:34 - CONCLUSION: No evidence of fracture. Vineet Levine MD Lumbar Spine X-Ray 06/10/16 Signed Impressions: Service Date/Time: Friday, June 10, 2016 12:09 - CONCLUSION: Fracture of the L1 vertebral body involving the anterior inferior portion of the vertebral body. Possible involvement of the pedicles seen on the lateral view. Vineet Levine MD Head CT 06/10/16 Signed Impressions: Service Date/Time: Friday, June 10, 2016 09:34 - CONCLUSION: No acute intracranial findings. Vineet Levine MD Cervical Spine CT 06/10/16 Signed Impressions: Service Date/Time: Friday, June 10, 2016 09:34 - CONCLUSION: 1. No evidence of fracture. 2. Multilevel degenerative findings. Vineet Levine MD Assessment and Plan Assessment and Plan new AF- back in NSR, no events overnight continue metoprolol coumadin vs HAI discussed, she wants pradaxa ok for d/c and OP work up HTN- good on present meds Hayde Plata MD Jun 11, 2016 10:26
[2016-06-11] MEDS ORDERED: DABIGATRAN ETEXILATE 150 MG CAP PO SCH (11:00)
[2016-06-11] MEDS ORDERED: CALC200S NASAL (11:29)
[2016-06-11] MEDS ORDERED: ACET325T PO (11:29)
[2016-06-11] MEDS ORDERED: PRAD150C PO (11:29)
[2016-06-11] MEDS ORDERED: METO25TA3 PO (11:29)
--- NOTE | 2016-06-11 11:29 | HHI.DCPOC ---
Discharge Care Plan Diagnosis: (1) Atrial fibrillation (2) Fall (3) HTN (hypertension) (4) HLD (hyperlipidemia) Goals to Promote Your Health * To prevent worsening of your condition and complications * To maintain your health at the optimal level Directions to Meet Your Goals Take your medications as prescribed Follow your dietary instruction Follow activity as directed Keep your appointments as scheduled Take your immunizations and boosters as scheduled If your symptoms worsen call your PCP, if no PCP go to Urgent Care Center or Emergency Room Smoking is Dangerous to Your Health. Avoid second hand smoke Call the 24-hour hour crisis hotline for domestic abuse at Espinoza Meier MD R1 Jun 11, 2016 11:29
[2016-06-11] MEDS ORDERED: DILTIAZEM HCL 30 MG TAB PO SCH (13:00)
== END 2016-06-11 12:56 | disposition home or self-care (01) | DRG 309 ==
LOC: NEPC 09:05 → NEDA 11:33 → OBSVTOIN 11:40 → NEDA 15:16 → NEDH 20:00 → NEPHCDU 06-11 05:52
PROVIDERS: ADMIT Family Medicine; ATTEND Family Medicine
DX: I48.0 Paroxysmal atrial fibrillation (principal); S32.010A Wedge compression fracture of first lumbar vertebra, initial encounter for closed fracture; I10 Essential (primary) hypertension; J45.909 Unspecified asthma, uncomplicated; M19.90 Unspecified osteoarthritis, unspecified site; R55 Syncope and collapse; R04.0 Epistaxis; S00.83XA Contusion of other part of head, initial encounter; E78.5 Hyperlipidemia, unspecified; Z85.048 Personal history of other malignant neoplasm of rectum, rectosigmoid junction, and anus; Z88.5 Allergy status to narcotic agent; Z88.2 Allergy status to sulfonamides; Z82.49 Family history of ischemic heart disease and other diseases of the circulatory system; W18.39XA Other fall on same level, initial encounter; Y93.89 Activity, other specified; Y92.002 Bathroom of unspecified non-institutional (private) residence as the place of occurrence of the external cause; E78.00 Pure hypercholesterolemia, unspecified; R51 Headache; R20.2 Paresthesia of skin
CPT/HCPCS: 70450; 70486; 71010; 72110; 72125; 72170; 80048; 80053; 82550; 83735; 84443; 84484; 85025; 85027; 85610; 85730; 93005; 96361; 96374; 96375; J1650; J1885; J7040

== ENCOUNTER 2016-06-30 13:25 | Day surgery (SDC) | payer MEDICARE ==
[~2016-06-30 13:25] MED LIST changes: +ACET325T PO; +AMLO10TA2 PO; -AMLO5TAB96 PO; -ASPI325T PO; +CALC200S NASAL; +CALCCHW25 CHEW; -CALCCHW25 PO; -LORA10TA7 PO; +METO25TA3 PO; +MULT1TAB84 PO; -OCUV PO; +PRAD150C PO; -SIMV40 PO; +SIMV40TA PO; -VITATAB25 PO
[2016-06-30 13:51] VITALS: BP 123/75; PULSE 64; RESP 20; TEMP 98.2; O2SAT 98
[2016-06-30] MEDS ORDERED: CALC1TAB12 PO (13:58)
[2016-06-30] MEDS ORDERED: VITA100064 PO (13:58)
[2016-06-30] MEDS ORDERED: ATOR10TA15 PO (13:58)
--- NOTE | 2016-07-01 10:53 | RADRPT ---
EXAM DATE/TIME: 06/30/2016 00:00 [facility] COMPARISON : No previous studies available for comparison. INDICATIONS : CONSULT FOR KYPHOPLASTY OBJECTIVE: Temperature: 98.2 Heart Rate: 64 Blood Pressure: 123/75 Respiratory: 20 Oximetry: 98 PNEUMONIA VACCINE: YES HISTORY OF PRESENT ILLNESS: 66 year-old active female who sustained a fall at home on June 10. She fell in the bathroom striki ng her face against the wall and subsequently fell to her knees. Once in the ambulance she noticed ac [place] onset lower back pain. Workup has involved plain films and MRI displaying an acute L1 compression deformity with only minimal loss of height and no retropulsion. There is questionable pedicle involv ement on the plain films which is not substantiated on the MRI. The patient states the pain is stable to minimally improved from onset. She is not able to take oral pain medication as it makes her feel unwell. She has tried tramadol with poor response. She denies a bladder or bowel incontinence. There is some radiculopathy involving the right lateral hip. Patient states there is little positioning clover t reduces the discomfort. It is certainly lifestyle limiting. Patient has a recent diagnosis of A. fi b and has been placed on Predaxa. PAST MEDICAL HISTORY : 1. Hypertension. 2. Osteoarthritis. 3. Carcinoma, rectal. 4. A-FIB PAST SURGICAL HISTORY : 1. TONSILLECTOMY 2. D&C SOCIAL HISTORY : Social alcohol use. Tobacco;none. ALLERGIES: 1. Sulfa 2. CODEINE MEDICATIONS: 1. AMLODIPINE 5 mg q.d. 2. ATORVASTIN 10 mg q.d. 3. Pradaxa (Dabigatran) 150 mg b.i.d. 4. Lopressor (Metoprolol) 25 mg b.i.d. 5. MULTI VITAMIN q.d. 6. CALCITONIN NASAL SPRAY q.d. 7. CALCIUM q.d. 8. VITAMIN D q.d. PHYSICAL EXAMINATION: General: Patient is in no acute distress. She is sitting in a chair but clearly uncomfortable. Musculoskeletal: Palpation of the spinous processes of the thoracic and lumbar spine elicits exquisite pain at the tho racolumbar junction region. Sensory and motor function are intact. Other: Please see the history and physical examination by Dr. Cooper. IMAGING STUDIES: MRI of the lumbar spine from [facility] shows an acute L1 compression deformity with minimal loss of height of the superior endplate. No retropulsion. No appreciable edema involving the pedicle s to clearly suggest pedicle fractures. Lumbar spine x-rays from [facility] with question of pedicle involvement. ASSESSMENT: Acute to subacute L1 compression fracture. Patient is not tolerating medical management. This is an a ctive patient who is experiencing significant reduction in lifestyle. I discussed the risks, benefits , and alternatives of kyphoplasty. I explained halad procedure was performed and what to expect posto peratively. I discussed the need to further evaluate the patient's pedicles to gain understanding of whether there is truly involvement of the fracture with the pedicles. This will be further evaluated with CT of the lumbar spine. PLAN: CT of the lumbar spine to evaluate the pedicles for any involvement. 1. Depending on the CT lumbar spine will plan to venture forward with kyphoplasty of L1. TIME SPENT: <20 minutes>> Broderick Ordonez Jr., MD on July 01, 2016 at 10:43 Board Certified Radiologist. This report was verified electronically.
== END 2016-06-30 15:31 | disposition home or self-care (01) ==
LOC: HROP 13:25 → HRIP 13:26 → HROP 15:31
DX: S32.009A Unspecified fracture of unspecified lumbar vertebra, initial encounter for closed fracture (principal); I10 Essential (primary) hypertension; I48.91 Unspecified atrial fibrillation; Z79.01 Long term (current) use of anticoagulants
CPT/HCPCS: 99213; G0463

== ENCOUNTER 2016-07-08 08:00 | Day surgery (SDC) | payer MEDICARE ==
[~2016-07-08] VITALS: Ht 160 cm; Wt 60.5 kg
[~2016-07-08 08:00] MED LIST changes: -ACET325T PO; +ATOR10TA15 PO; +CALC1TAB12 PO; -CALCCHW25 CHEW; -SIMV40TA PO; +VITA100064 PO
[2016-07-08 08:15] VITALS: BP 143/78; PULSE 59; RESP 20; TEMP 98.2; O2SAT 96
[2016-07-08] MEDS ORDERED: AMLO5TAB2 PO (08:35)
[2016-07-08] MEDS ORDERED: LORA10TA PO (08:35)
[2016-07-08] MEDS ORDERED: NASA5.2S2 EACH NARE (08:35)
[2016-07-08] MEDS ORDERED: OCUVTAB PO (08:35)
[2016-07-08] MEDS ORDERED: ATOR40TA16 PO (08:35)
[2016-07-08] MEDS ORDERED: METOPROLOL TARTRATE 25 MG TAB PO PRN (08:45)
[2016-07-08] MEDS ORDERED: SODIUM CHLORID 0.9% 500 ML IV SCH (08:45)
[2016-07-08] MEDS ORDERED: INSULIN HUMAN REGULAR 1,000 UNITS/10 ML VIAL SQ PRN (08:45)
[2016-07-08] MEDS ORDERED: LACTATED RINGER'S 1000 ML IV SCH (08:45)
[2016-07-08 08:52] LABS: AUTOMATED NEUTROPHIL # 3.7 TH/MM3 (1.8-7.7); BASOPHIL # 0.1 TH/MM3 (0-0.2); EOSINOPHIL # 0.1 TH/MM3 (0-0.4); EOSINOPHIL % 2.1 % (0.0-4.0); HEMATOCRIT 39.9 % (35.0-46.0); HEMO FLAGS DIFF FINAL; LYMPH % 19.3 % (9.0-44.0); MEAN CELL VOLUME 86.1 FL (80.0-100.0); MEAN CORPUSCULAR HEMOGLOBIN 30.2 PG (27.0-34.0); MEAN CORPUSCULAR HGB CONC 35.1 % (32.0-36.0); MONO % 9.2 % (0.0-8.0); NEUT % 68.4 % (16.0-70.0); PLATELET COUNT 219 TH/MM3 (150-450); RED BLOOD COUNT 4.63 MIL/MM3 (4.00-5.30); RED CELL DISTRIBUTION WIDTH 15.2 % (11.6-17.2); WHITE BLOOD COUNT 5.4 TH/MM3 (4.0-11.0)
[2016-07-08 08:59] LABS: APTT (PATIENT) 27.1 SEC (24.3-30.1); INTERNATIONAL NORMALIZED RATIO 0.9 RATIO; PROTHROMBIN TIME - PATIENT 10.4 SEC (9.8-11.6)
[2016-07-08] MEDS ORDERED: SODIUM CHLOR 0.9% 1000 ML INJ 1,000 ML IV SCH (09:00)
[2016-07-08] MEDS ORDERED: ceFAZolin 2 GM PREMIX 50 ML IV SCH (09:00)
[2016-07-08 09:03] LABS: BICARBONATE 30.8 MEQ/L (21.0-32.0); POTASSIUM 3.9 MEQ/L (3.5-5.1)
[2016-07-08] MEDS ORDERED: BUPIVACAINE HCL PF 0.75% 30 ML VIAL ONE (11:20)
[2016-07-08] MEDS ORDERED: MIDAZOLAM HCL 2 MG/2 ML VIAL ONE (11:55)
[2016-07-08 12:00] VITALS: BP_SYST 120; BP_SYST 99; BP_DIAS 54; BP_DIAS 58; PULSE 44; PULSE 54; RESP 16; RESP 18; TEMP 97.8; O2SAT 94
--- NOTE | 2016-07-08 12:10 | PD.RAD ---
Post Procedure Progress Note Pre Procedure Diagnosis: (1) Compression fracture of L1 lumbar vertebra Post Procedure Diagnosis: (1) Compression fracture of L1 lumbar vertebra Procedure Date: Jul 08, 2016 Supervising Radiologist: Broderick Ordonez JR Proceduralist/Assist: Jennifer Mariscal RT(R), RT Darshana(R)() Anesthesia: MAC Plan of Activity Patient to Unit: ROPU Patient Condition: Good See PACS Report for procedural detail/treatment Spinal Procedure Kyphoplasty L1 Findings: Successful L 1 kyphoplasty Plan F/U with IR in 2-3 weeks. Sooner if any issues Jr. José Luis,Broderick Vega MD Jul 08, 2016 12:10
[2016-07-08 12:15] VITALS: BP 114/60; PULSE 50; RESP 16; O2SAT 91
[2016-07-08 12:30] VITALS: BP 111/60; PULSE 45; RESP 16; O2SAT 93
[2016-07-08 13:00] VITALS: BP 120/55; PULSE 48; RESP 16; O2SAT 94
[2016-07-08 13:30] VITALS: BP 116/65; PULSE 55; RESP 18; O2SAT 93
--- NOTE | 2016-07-08 14:01 | RADRPT ---
EXAM DATE/TIME: 07/08/2016 10:59 [facility] COMPARISON: No previous studies available for comparison. INDICATIONS : Patient with subacute L1 compression fracture and persistent lower back pain is lifestyle limiting. T he patient is not tolerating medical management. Kyphoplasty requested.. MEDICAL HISTORY : Fracture of L1 DJD HTN Hx of rectal adeno carcinoma Meniere's disease Osteopenia SURGICAL HISTORY : Tonsilectomy Hemorhoidectomy Cataract sx ENCOUNTER: Initial ACUITY: 1 month PAIN SCORE: 0/10 FLUORO TIME: 6.4 minutes IMAGE SERIES: 2 LEVEL: L1 DEVICE: 1. 3 cc AVAMax bone cement Anesthesia and pain control was provided by the Anesthesia department. PROCEDURE : 1. Fluoroscopically-guided L1 kyphoplasty. 2. anesthesia provided by the anesthesiology department. The risks, benefits and alternatives to the procedure were explained and verbal and written consent w as obtained. The site was prepped in sterile fashion. Full sterile technique was used, including ca p, mask, sterile gloves and gown and a large sterile sheet. Hand hygiene and 2% chlorhexidine and/or betadine/alcohol prep was utilized per protocol for cutaneous antisepsis. The skin and subcutaneous tissues were infiltrated with local anesthetic solution. With fluoroscopic guidance via a left unilateral transpedicular approach access was gained to the L1 vertebral body. Kyphoplasty was performed with cavity creation as above. The prescribed cement volu me was placed. Post procedure images demonstrate cement confined to the vertebral body. Anesthesia provided by the anesthesiology department. EKG and oximetry remained stable throughout the procedure. The patient tolerated the procedure well and there were no complications. The patient w as sent to post anesthesia recovery in stable condition. CONCLUSION: Uncomplicated L1 kyphoplasty as above. Broderick Ordonez Jr., MD on July 08, 2016 at 13:56 Board Certified Radiologist. This report was verified electronically.
--- NOTE | 2016-07-08 22:49 | EKG ---
Date Performed: 07/08/2016 Time Performed: 08:21:58 PTAGE: 66 years EKG: SINUS BRADYCARDIA WITH PACs BORDERLINE ECG PREVIOUS TRACING : 06/10/2016 09.15 DOCTOR: Cayden Mart Interpretating Date/Time 07/08/2016 22:48:13
== END 2016-07-08 14:36 | disposition home or self-care (01) ==
LOC: HROP 08:00 → HRIP 08:01 → HROP 14:36
DX: S32.010A Wedge compression fracture of first lumbar vertebra, initial encounter for closed fracture (principal); R00.1 Bradycardia, unspecified
CPT/HCPCS: 22514; 80048; 85025; 85610; 85730; 93005; J0690; J2250; J3010; J7030

== ENCOUNTER 2016-07-22 13:26 | Day surgery (SDC) | payer MEDICARE ==
[~2016-07-22 13:26] MED LIST changes: -AMLO10TA2 PO; +AMLO5TAB2 PO; -ATOR10TA15 PO; +ATOR40TA16 PO; -CALC200S NASAL; +LORA10TA PO; +NASA5.2S2 EACH NARE; +OCUVTAB PO
[2016-07-22 13:39] VITALS: BP 143/70; PULSE 59; RESP 20; TEMP 97.6; O2SAT 98
== END 2016-07-22 13:50 | disposition home or self-care (01) ==
LOC: HROP 13:26 → HRIP 13:31 → HROP 13:50
PROVIDERS: ATTEND Pathology Anatomic Pathology & Clinical Pathology
DX: S32.010A Wedge compression fracture of first lumbar vertebra, initial encounter for closed fracture (principal)